=== PATIENT | female | born 1980 | race Two or more races ===

== ENCOUNTER 2020-03-09 16:04 | Inpatient (IN) | payer MEDICAID, OTHER ==
[~2020-03-09] VITALS: Ht 162.6 cm; Wt 83.9 kg
[2020-03-09 17:00] LABS: Basophils # (auto) 0 10 ^3/uL (0-0.2); Basophils % (auto) 0.4 % (0.0-2.0); Eosinophils # (auto) 0.3 10 ^3/uL (0-0.8); Eosinophils % (auto) 3.7 % (0.0-7.0); Hematocrit 37.1 % (36.0-46.0); Hemoglobin 12.3 g/dL (12.2-16.2); Lymphocytes % (auto) 23.7 % (10.0-50.0); Mean Corpuscular Hemoglobin 28.7 pg (28.0-32.0); Mean Corpuscular Hgb Conc. 33.1 g/dL (32.0-36.0); Mean Corpuscular Volume 86.6 fL (80.0-100.0); Monocytes # (auto) 0.6 10 ^3/uL (0-1.3); Monocytes % (auto) 7.4 % (0.0-12.0); Neutrophils # (auto) 5.5 10 ^3/uL (1.6-8.6); Neutrophils % (auto) 64.8 % (37.0-80.0); Nucleated Red Blood Cells % 0.1 %; Platelet Count (auto) 355 10^3/uL (140-450); Red Blood Cells 4.28 10^6/uL (4.0-5.20); Red Cell Distribution Width 13.6 % (11.8-14.3); White Blood Cell 8.4 10^3/uL (4.4-10.8)
[2020-03-09 17:16] LABS: Albumin 3.6 g/dL (3.4-5.0); Anion Gap 4 (5-15); Blood Urea Nitrogen 17 mg/dL (7-18); Calcium 8.8 mg/dL (8.5-10.1); Carbon Dioxide 25 mmol/L (21-32); Chloride 112 mmol/L (98-107); Glucose 99 mg/dL (74-106); Magnesium 2.6 mg/dL (1.6-2.6); Potassium 3.7 mmol/L (3.5-5.1); Sodium 141 mmol/L (136-145)
[2020-03-09 17:21] LABS: Alanine Aminotransferase 21 U/L (13-56); Alkaline Phosphatase 77 U/L (45-117); Aspartate Aminotransferase 8 U/L (15-37); BUN/Creatinine Ratio 23.3; Bilirubin, Total 0.2 mg/dL (0.2-1.0); Blood Alcohol < 3.0 mg/dL (0-5); GFR African American 114 mL/min; GFR Non-African American 94 mL/min; Total Protein 7.4 g/dL (6.4-8.2)
[2020-03-09] MEDS ORDERED: DOCUSATE SOD 100 MG CAP PO PRN (21:45)
[2020-03-09] MEDS ORDERED: ACETAMINOPHEN 325 MG TAB PO PRN (21:45)
[2020-03-09] MEDS ORDERED: levETIRAcetam 500 MG/5ML INJ IV ONE (23:52)
[2020-03-10] MEDS: SODIUM CHLORIDE 0.9% 1,000 ML IV SCH ×2 (00:05→14:20)
[2020-03-10] MEDS: ONDANSETRON HCL 4 MG/2 ML VIAL IV PRN ×2 (09:10→15:49)
[2020-03-10] MEDS: MORPHINE SULF INJ 2 MG/ML SYRINGE 1ML IV PRN ×3 (09:10→20:38)
[2020-03-10 09:16] LABS: Basophils # (auto) 0 10 ^3/uL (0-0.2); Basophils % (auto) 0.5 % (0.0-2.0); Eosinophils # (auto) 0.3 10 ^3/uL (0-0.8); Eosinophils % (auto) 2.5 % (0.0-7.0); Hematocrit 38.2 % (36.0-46.0); Hemoglobin 12.5 g/dL (12.2-16.2); Lymphocytes # (auto) 1.9 10 ^3/uL (0.4-5.4); Lymphocytes % (auto) 18.9 % (10.0-50.0); Mean Corpuscular Hemoglobin 28.3 pg (28.0-32.0); Mean Corpuscular Hgb Conc. 32.7 g/dL (32.0-36.0); Mean Corpuscular Volume 86.7 fL (80.0-100.0); Monocytes # (auto) 0.6 10 ^3/uL (0-1.3); Monocytes % (auto) 5.6 % (0.0-12.0); Neutrophils # (auto) 7.3 10 ^3/uL (1.6-8.6); Neutrophils % (auto) 72.5 % (37.0-80.0); Platelet Count (auto) 347 10^3/uL (140-450); Red Cell Distribution Width 13.3 % (11.8-14.3)
[2020-03-10 09:28] LABS: Calcium 8.3 mg/dL (8.5-10.1); Potassium 3.6 mmol/L (3.5-5.1)
[2020-03-10] MEDS: TOPIRAMATE 100 MG TAB PO SCH ×2 (09:30→22:06)
[2020-03-10] MEDS: levETIRAcetam 500 MG TAB PO SCH ×2 (09:30→22:06)
[2020-03-10] MEDS ORDERED: levoFLOXacin 750MG 150 ML IV ONE (16:00)
[2020-03-10] MEDS ORDERED: PANTOPRAZOLE 40 MG TAB PO ONE (16:00)
--- NOTE | 2020-03-10 18:26 | NUR ---
Telemetry admit from ER VALLECILLOZAK GAITAN admitted to Telemetry unit after SBAR received. Patient oriented to CINDY BERNABE, RN primary RN, unit, room 296A, bed, and unit policies regarding patient care and visiting hours. Patient now on continuous telemetry monitoring, tele box # 57 and telemetry reading on arrival to unit is sinus rhythm 68. Patient placed on bedside oxygen at 2LPM, weighed by bedscale and encouraged to call if they need something. All questions and concerns addressed, patient verbalized understanding. Bed in low and locked position, rails up x2, no-slip socks on.
[2020-03-10] MEDS ORDERED: LEVE500T22 PO (19:04)
[2020-03-10] MEDS ORDERED: INSU100I43 SC (19:04)
[2020-03-10] MEDS ORDERED: INSLANTI SC (19:04)
[2020-03-10] MEDS ORDERED: TOPI100T29 PO (19:04)
--- NOTE | 2020-03-10 20:10 | NUR ---
MRSA SWAB AND UA SENT TO LAB AT THIS TIME.
[2020-03-10 21:38] LABS: Amphetamine Screen, Urine NEGATIVE (NEGATIVE); Barbiturate Scree,Urine NEGATIVE (NEGATIVE); Benzodiazephine Screen, Urine POSITIVE (NEGATIVE); Cannabinoid Screen, Urine NEGATIVE (NEGATIVE); Cocaine Screen, Urine NEGATIVE (NEGATIVE); Opiate Scree,Urine POSITIVE (NEGATIVE); Phencyclidine Screen, Urine NEGATIVE (NEGATIVE)
[2020-03-10 22:00] VITALS: BP 111/70
[2020-03-10 22:00] LABS: Urine Bacteria FEW /hpf (None Seen); Urine Blood Negative /uL (Negative); Urine Mucus FEW (None Seen); Urine WBC 7 /hpf (0 - 5)
[2020-03-10] MEDS: HYDROcodone-ACET 5/325MG TAB PO PRN (23:28)
[2020-03-11] MEDS: MORPHINE SULF INJ 2 MG/ML SYRINGE 1ML IV PRN ×4 (02:54→21:08)
[2020-03-11] MEDS: HYDROcodone-ACET 5/325MG TAB PO PRN ×2 (04:09→12:22)
[2020-03-11 06:07] LABS: Albumin 3.2 g/dL (3.4-5.0); Bilirubin, Direct 0.2 mg/dL (0-0.2)
[2020-03-11 06:10] LABS: Bilirubin, Total 0.5 mg/dL (0.2-1.0); Total Protein 7.5 g/dL (6.4-8.2)
--- NOTE | 2020-03-11 06:25 | NUR ---
PATIENT IS DIABETIC BUT NOT ON SLIDING SCALE OR ACCU CHECKS. MORNING BS WAS 98.
--- NOTE | 2020-03-11 06:40 | NUR ---
PAGED HOSPITALIST TO PUT PATIENT ON SLIDING SCALE/ACCU CHECKS. AWAITING CALLBACK.
[2020-03-11] MEDS: SODIUM CHLORIDE 0.9% 1,000 ML IV SCH ×2 (06:53→21:08)
--- NOTE | 2020-03-11 07:00 | NUR ---
Opening Shift Note. Received report on the patient. Awake lying in bed. Patient shows no signs of distress at this time. Discussed plan of care with the patient. Bed in lowest position, side rails up x2, and the call light is within reach.
[2020-03-11 09:00] VITALS: BP 105/62
[2020-03-11] MEDS: PANTOPRAZOLE 40 MG TAB PO SCH (09:05)
[2020-03-11] MEDS: TOPIRAMATE 100 MG TAB PO SCH ×2 (09:05→21:08)
[2020-03-11] MEDS: levoFLOXacin 750MG 150 ML IV SCH (09:05)
[2020-03-11] MEDS: levETIRAcetam 500 MG TAB PO SCH ×2 (09:05→21:08)
--- NOTE | 2020-03-11 10:43 | NUR ---
Dr Lua at bedside. New orders received.
[2020-03-11 13:00] VITALS: BP 101/50
--- NOTE | 2020-03-11 14:19 | NUR ---
MRCP could not be done because the patient had previous surgeries with wires placed inside of her.
--- NOTE | 2020-03-11 15:08 | NUR ---
Dr Jesse Cannon at bedside. New orders received.
[2020-03-11 15:16] LABS: Amylase 54 U/L (25-115); Lipase 196 U/L (73-393)
[2020-03-11 17:00] VITALS: BP 101/48
[2020-03-11 21:57] VITALS: BP 98/66
[2020-03-12] MEDS: MORPHINE SULF INJ 2 MG/ML SYRINGE 1ML IV PRN ×2 (01:39→06:37)
[2020-03-12] MEDS: HYDROcodone-ACET 5/325MG TAB PO PRN ×2 (03:56→10:20)
[2020-03-12 05:00] VITALS: BP 112/72
[2020-03-12 08:38] LABS: Albumin 3.5 g/dL (3.4-5.0); Calcium 8.9 mg/dL (8.5-10.1); Potassium 3.7 mmol/L (3.5-5.1)
[2020-03-12 08:41] LABS: BUN/Creatinine Ratio 12.3; Bilirubin, Direct 0.2 mg/dL (0-0.2); Bilirubin, Total 0.5 mg/dL (0.2-1.0); Total Protein 8.2 g/dL (6.4-8.2)
[2020-03-12 08:47] VITALS: BP 106/65
[2020-03-12] MEDS: levETIRAcetam 500 MG TAB PO SCH (10:19)
[2020-03-12] MEDS: TOPIRAMATE 100 MG TAB PO SCH (10:19)
[2020-03-12] MEDS: levoFLOXacin 750MG 150 ML IV SCH (10:19)
[2020-03-12] MEDS: PANTOPRAZOLE 40 MG TAB PO SCH (10:19)
--- NOTE | 2020-03-12 12:09 | NUR ---
Patient left AMA
== END 2020-03-12 11:42 | disposition left against medical advice (07) | DRG 100 ==
LOC: EDBD 16:04 → ER 16:04 → TELE 16:05 → TELE-WESTW 03-10 18:27
PROVIDERS: ADMIT Hospitalist; ATTEND Internal Medicine
DX: G40.401 Other generalized epilepsy and epileptic syndromes, not intractable, with status epilepticus (principal); J69.0 Pneumonitis due to inhalation of food and vomit; F17.200 Nicotine dependence, unspecified, uncomplicated; E11.9 Type 2 diabetes mellitus without complications; Z79.899 Other long term (current) drug therapy; Z83.3 Family history of diabetes mellitus; Z90.49 Acquired absence of other specified parts of digestive tract; R10.11 Right upper quadrant pain; Z53.29 Procedure and treatment not carried out because of patient's decision for other reasons
CPT/HCPCS: 36415; 71045; 74176; 80048; 80053; 80061; 80076; 80307; 80320; 81001; 82150; 82962; 83690; 83735; 84702; 85025; 87081; G0378; J1956; J2405; J7060